=== PATIENT | female | born 2000 | race Two or more races ===

== ENCOUNTER 2021-02-20 19:22 | Emergency (ER) | payer OTHER ==
[~2021-02-20] VITALS: Ht 175.3 cm; Wt 74.8 kg
--- NOTE | 2021-02-20 20:00 | NUR ---
BIBS FOR C/O BILATERAL LOWER ABD PAIN X 8 DAYS . ALSO REPORTED "I CAN NOT FEEL MY IUD". PT A/OX4.
--- NOTE | 2021-02-20 20:41 | NUR ---
US TECH AT BED SIDE
[2021-02-20 20:53] LABS: BILIRUBIN,URINE NEGATIVE (NEGATIVE); COLOR,URINE YELLOW (YELLOW); LEUKOCYTE ESTERASE ,URINE NEGATIVE (NEGATIVE); NITRITE, URINE NEGATIVE (NEGATIVE); PROTEIN,URINE NEGATIVE (NEGATIVE); UGLUCOSE NEGATIVE (NEGATIVE); UROBILINOGEN,URINE 0.2 EU/dL (0.2)
[2021-02-20] MEDS ORDERED: IBUP-1955 PO (21:32)
--- NOTE | 2021-02-20 21:40 | NUR ---
Patient discharged to home in stable condition. Written and verbal after care instructions given. Patient verbalizes understanding of instruction.
[2021-02-20 21:44] VITALS: BP 131/79
== END 2021-02-20 21:45 | disposition home or self-care (01) ==
LOC: EDSEX 19:22 → ER 19:36
DX: N83.291 Other ovarian cyst, right side (principal); Z60.2 Problems related to living alone; Z79.1 Long term (current) use of non-steroidal anti-inflammatories (NSAID)
CPT/HCPCS: 76856-TC; 84703-TC